=== PATIENT | male | born 1945 | race Two or more races ===

== ENCOUNTER 2021-11-29 18:18 | Emergency (ER) | payer OTHER, MEDICAID ==
[~2021-11-29] VITALS: Ht 165.1 cm; Wt 74.8 kg
[~2021-11-29 18:18] MED LIST: ASPI-498 OR; ATOR-47 PO; GLIM4TAB42 PO; INSLANTI SC; METF-371 PO; ONGLYZA
[2021-11-29] MEDS ORDERED: DOXYCYCLINE 100 MG TAB/CAP PO ONE (19:30)
[2021-11-29] MEDS ORDERED: cefTRIAXone W LIDOCAINE 1 GM IM IM ONE (19:30)
[2021-11-29] MEDS ORDERED: HYDR-5028 PO (19:34)
[2021-11-29] MEDS ORDERED: DOXY-286 PO (19:34)
[2021-11-29] MEDS ORDERED: CEFD300C2 PO (19:34)
[2021-11-30] MEDS ORDERED: cefTRIAXone SOD 1,000 MG VL ONE (04:22)
[2021-11-30 04:50] VITALS: BP 114/72
== END 2021-11-30 05:04 | disposition home or self-care (01) ==
LOC: ER 18:18
DX: L03.116 Cellulitis of left lower limb (principal); L08.9 Local infection of the skin and subcutaneous tissue, unspecified; I10 Essential (primary) hypertension; E11.9 Type 2 diabetes mellitus without complications; Z87.891 Personal history of nicotine dependence; Z79.82 Long term (current) use of aspirin; Z79.4 Long term (current) use of insulin; Z79.899 Other long term (current) drug therapy
CPT/HCPCS: 96372; 99283; J0696

== ENCOUNTER 2021-12-12 19:22 | Emergency (ER) | payer OTHER, MEDICAID ==
[~2021-12-12] VITALS: Ht 160 cm; Wt 68.2 kg
[~2021-12-12 19:22] MED LIST changes: +CEFD300C2 PO; +DOXY-286 PO; +HYDR-5028 PO
[2021-12-12 19:51] VITALS: BP 137/84
== END 2021-12-13 05:30 | disposition left against medical advice (07) ==
LOC: ER 19:22
DX: R21 Rash and other nonspecific skin eruption (principal); Z53.21 Procedure and treatment not carried out due to patient leaving prior to being seen by health care provider

== ENCOUNTER → 2023-07-07 | Outpatient (CLI) | payer OTHER ==
[2023-07-07 14:41] LABS: Basophils # (auto) 0 10 ^3/uL (0-0.2); Eosinophils # (auto) 0.1 10 ^3/uL (0-0.8); Lymphocytes # (auto) 1.8 10 ^3/uL (0.4-5.4); Monocytes # (auto) 0.3 10 ^3/uL (0-1.3)
[2023-07-07 14:43] LABS: Basophils % (auto) 0.7 % (0.0-2.0); Eosinophils % (auto) 1.2 % (0.0-7.0); Hemoglobin 12.3 g/dL (13.5-17.5); Lymphocytes % (auto) 34.4 % (10.0-50.0); Mean Corpuscular Hemoglobin 26.8 pg (28.0-32.0); Mean Corpuscular Hgb Conc. 33.2 g/dL (32.0-36.0); Mean Corpuscular Volume 80.9 fL (80.0-100.0); Neutrophils % (auto) 57.7 % (37.0-80.0); Red Blood Cells 4.57 10^6/uL (4.5-5.90); Red Cell Distribution Width 15.5 % (11.8-14.3); White Blood Cell 5.3 10^3/uL (4.4-10.8)
[2023-07-07 15:20] LABS: Alanine Aminotransferase 14 U/L (7-40); Albumin 4.3 g/dL (3.2-4.8); Alkaline Phosphatase 100 U/L (46-116); Anion Gap 6 (5-15); Aspartate Aminotransferase 12 U/L (13-40); Calcium 9.6 mg/dL (8.5-10.1); Carbon Dioxide 28 mmol/L (20-30); Chloride 101 mmol/L (98-107); Glucose 326 mg/dL (74-106); LDL Cholesterol 114 mg/dL (< 100); Potassium 4.3 mmol/L (3.5-5.1); Sodium 135 mmol/L (136-145); Triglycerides 87 mg/dL (< 150)
[2023-07-07 15:21] LABS: % Iron Saturation 15.6 % (20-55); Bilirubin, Total 0.5 mg/dL (0.2-1.0); Cholesterol 204 mg/dL (< 200); HDL Cholesterol 77 mg/dL (40-59); Total Protein 6.8 g/dL (5.7-8.2)
[2023-07-07 15:23] LABS: Folate (Folic Acid) > 24.00 ng/mL (>5.38)
[2023-07-07 15:38] LABS: BUN/Creatinine Ratio 5.2 (10.0-20.0); Blood Urea Nitrogen < 5 mg/dL (9-23)
[2023-07-07 15:41] LABS: Uric Acid 3.4 mg/dL (3.7-9.2)
== END | disposition home or self-care (01) ==
LOC: LAB 14:13
PROVIDERS: ATTEND Family Medicine
DX: Z00.00 Encounter for general adult medical examination without abnormal findings (principal); E11.65 Type 2 diabetes mellitus with hyperglycemia
CPT/HCPCS: 36415; 80053; 80061; 82607; 82746; 83036; 83540; 83550; 84403; 84443; 84550; 85025

== ENCOUNTER → 2023-10-08 | Outpatient (CLI) | payer OTHER | END | disposition home or self-care (01) | LOC: LAB 11:46 | PROVIDERS: ATTEND Family Medicine | DX: R07.89 Other chest pain (principal); R09.89 Other specified symptoms and signs involving the circulatory and respiratory systems; M79.605 Pain in left leg; N43.3 Hydrocele, unspecified; R05.1 Acute cough | CPT/HCPCS: 84153 ==